=== PATIENT | male | born 1970 | race Caucasian/White ===

== ENCOUNTER → 2022-01-06 | Outpatient (CLI) | payer BC ==
[2022-01-06 10:00] LABS: HEMOGLOBIN 15.4 gm/dl (14.0-17.5); RED BLOOD COUNT 4.95 M/UL (4.20-5.50); WHITE BLOOD COUNT 5.7 K/UL (4.5-11.0)
[2022-01-06 10:25] LABS: BUN/CREATININE RATIO 18 (0-10)
== END ==
LOC: LAB 09:10
PROVIDERS: Nurse Practitioner Family
DX: L03.90 Cellulitis, unspecified (principal); I50.9 Heart failure, unspecified; R00.0 Tachycardia, unspecified; K76.9 Liver disease, unspecified; R73.9 Hyperglycemia, unspecified; M10.9 Gout, unspecified; E87.5 Hyperkalemia
CPT/HCPCS: 36415; 80053; 80061; 81001; 83036; 84153; 84439; 84443; 84481; 85027